=== PATIENT | female | born 1975 | race Caucasian/White ===

== ENCOUNTER 2017-01-25 09:07 | Emergency (ER) | payer OTHER ==
[2017-01-25 09:19] VITALS: BP 105/69
--- NOTE | 2017-01-25 09:39 | UC ---
Respiratory Complaint HPI - History of Current Complaint Chief Complaint: UCGeneralIllness Stated Complaint: SORE THROAT Time Seen by Provider: 01/25/17 09:32 Hx Obtained From: Patient Hx Last Menstrual Period: 01/13/17 ?: No Onset/Duration: Sudden Onset, Lasting Weeks - 1, Still Present, Worse Since - the laryngitis Timing: Constant Severity Initially: Mild Severity Currently: Moderate Character: Cough: Productive Aggravating Factors: Deep Breaths, Recumbent Position Alleviating Factors: Nothing Associated Signs And Symptoms: Positive: Wheezing, URI, Nasal Congestion, Hoarseness, Sinus Discomfort - Risk Factors Pulmonary Embolism Risk Factors: Negative Cardiac Risk Factors: Negative Pseudomonas Risk Factors: Negative Tuberculosis Risk Factors: Negative - Allergies/Home Medications Allergies/Adverse Reactions: Allergies Allergy/AdvReac Type Severity Reaction Status Date / Time Aloe Allergy Intermediate Rash Verified 01/25/17 09:19 Clindamycin Allergy Intermediate Rash Verified 01/25/17 09:19 PMH/Surg Hx/FS Hx/Imm Hx Endocrine History Of: Reports: Thyroid Disease - HYPO Denies: Diabetes, Hyperthyroidism, Hypothyroidism, Dyslipidemia Cardiovascular History Of: Denies: Cardiac Disorders, Hypertension, Pacemaker/ICD, Myocardial Infarction , Congestive Heart Failure, Atrial Fibrillation, Deep Vein Thrombosis, Bleeding Disorders Respiratory History Of: Reports: Asthma Denies: COPD, Bronchitis, Pneumonia, Pulmonary Embolism GI/ History Of: Denies: Gastroesophageal Reflux, Ulcer, Gastrointestinal Bleed, Gall Bladder Disease, Kidney Stones, Diverticulitis, Renal Disease, Urosepsis Neurological History Of: Denies: TIA, CVA, Dementia, Seizures, Migraine Psychological History Of: Denies: Anxiety, Depression Cancer History Of: Denies: Lung Cancer, Colorectal Cancer, Breast Cancer, Prostate Cancer, Cervical Cancer Other History Of: Negative For: HIV, Hepatitis B, Hepatitis C - Surgical History Surgical History: Yes Surgery Procedure, Year, and Place: LEFT BREAST BIOPSY 2009,LUMPECTOMY RT BREAST 17 YRS AGO,. BRONCHOSCOPY-AUG 2014- "CLEAR" PER PAT - Family History Known Family History: Negative: Renal Disease, Blood Disorder - Social History Occupation: Employed Full-time Lives: With Family Alcohol Use: Occasionally Substance Use Type: None Smoking Status (MU): Never Smoked Tobacco - Immunization History Most Recent Influenza Vaccination: none Review of Systems Constitutional: Chills ENT: Sore Throat Respiratory: Shortness Of Breath, Cough All Other Systems Reviewed And Are Negative: Yes Physical Exam Triage Information Reviewed: Yes Appearance: No Pain Distress, Well-Nourished, Ill-Appearing Vital Signs: Initial Vital Signs Temp 98.7 F 01/25/17 09:15 Pulse 60 01/25/17 09:15 Resp 16 01/25/17 09:15 BP 105/69 01/25/17 09:15 Pulse Ox 100 01/25/17 09:15 Vital Signs Reviewed: Yes Eyes: Positive: Conjunctiva Clear ENT: Positive: Pharynx normal, TMs normal Neck exam: Normal Respiratory: Positive: Wheezing - Expiratory with coughing Cardiovascular Exam: Normal Musculoskeletal Exam: Normal Neurological Exam: Normal Psychological Exam: Normal Skin Exam: Normal UC Diagnostic Evaluation - Laboratory O2 Sat by Pulse Oximetry: 100 Respiratory Course/Dx - Differential Dx/Diagnosis Differential Diagnosis/HQI/PQRI: Asthma, Lower Resp Infection, Sinusitis Provider Diagnoses: Acute URI. Acute sinusitis. Acute bronchospasm Discharge - Discharge Plan Condition: Stable Disposition: HOME Prescriptions: Amoxicillin (*) [Amoxicillin 875 MG (*)] 875 mg PO BID #20 tab predniSONE TAB* [Deltasone TAB*] 20 mg PO DAILY #18 tab Patient Education Materials: Upper Respiratory Infection (ED), Bronchospasm (ED ), Prednisone (By mouth), Sinusitis (ED), Amoxicillin (By mouth)
== END 2017-01-25 09:50 | disposition home or self-care (01) ==
LOC: UCCORT 09:07
DX: J06.9 Acute upper respiratory infection, unspecified (principal); J01.90 Acute sinusitis, unspecified; J98.01 Acute bronchospasm; Z88.1 Allergy status to other antibiotic agents
CPT/HCPCS: 99212; G0463

== ENCOUNTER 2018-04-04 11:11 | Emergency (ER) | payer OTHER ==
[2018-04-04 11:33] VITALS: BP 123/73
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
--- NOTE | 2018-04-04 13:02 | RAD ---
HISTORY: Pain, trauma COMPARISONS: February 06, 2005 VIEWS: 5, Frontal, lateral, open-mouth odontoid, and bilateral oblique views of the cervical spine. FINDINGS: The cervical spine is visualized from the skull base through T1. ALIGNMENT: There is straightening of the normal cervical lordosis. VERTEBRAL BODIES: There is anterolateral marginal osteophyte formation with sclerotic degenerative changes and posterior osteophytic ridging at C5-C6. This has developed from the previous examination. JOINTS: There is uncovertebral and facet hypertrophy at C5-C6. On the right, there is moderate neuroforaminal narrowing. On the left, there is mild neural foraminal narrowing. INTERVERTEBRAL DISCS: There is loss of intervertebral disc height at C5-C6. SOFT TISSUE: The prevertebral soft tissues are normal. OTHER: The skull base is normal. The lung apices are clear. IMPRESSION: 1. STRAIGHTENING THE CERVICAL LORDOSIS. 2. DEGENERATIVE DISC DISEASE AND OSTEOARTHRITIS AT C5-C6, DEVELOPED FROM 2004. 3. NO ACUTE OSSEOUS INJURY TO THE CERVICAL SPINE.
--- NOTE | 2018-04-04 13:02 | RAD ---
HISTORY: Pain, trauma COMPARISONS: December 03, 2011 VIEWS: 5 , Frontal, lateral, coned-down lateral sacral, and bilateral oblique views of the lumbar spine. FINDINGS: ALIGNMENT: The alignment is normal. VERTEBRAL BODIES: The vertebral body heights are normal. The interpedicular distances are normal. JOINTS: There is facet osteoarthritis at L4-L5 and L5-S1 INTERVERTEBRAL DISCS: There is mild diffuse loss of intervertebral disc height. SOFT TISSUE: Unremarkable. OTHER: The pelvis is unremarkable. The lung bases are clear. IMPRESSION: MILD DEGENERATIVE DISC DISEASE AND OSTEOARTHRITIS. NO ACUTE OSSEOUS INJURY TO THE LUMBAR SPINE
== END 2018-04-04 13:15 | disposition home or self-care (01) ==
LOC: UCCORT 11:11
DX: M54.2 Cervicalgia (principal); M54.5 Low back pain; V43.52XA Car driver injured in collision with other type car in traffic accident, initial encounter; Y93.89 Activity, other specified; Y92.410 Unspecified street and highway as the place of occurrence of the external cause; Z88.1 Allergy status to other antibiotic agents
CPT/HCPCS: 72050; 72110; 99212; G0463

== ENCOUNTER 2018-09-06 07:21 | Emergency (ER) | payer OTHER ==
--- NOTE | 2018-09-06 07:27 | UC ---
Respiratory Complaint HPI - HPI Summary HPI Summary: Patient is a 43-year-old female who presents with cough and cold symptoms for almost 2 weeks. States cough, sinus congestion, and right ear pain. She did not take any temperature at home. Reports associated sinus pain and pressure and postnasal drip. She also has headache and right ear pain. She took DayQuil without much improvement. Denies any fever, chills, cough chest pain or shortness of breath . No diaphoresis. Denies any abdominal pain , nausea or vomiting , diarrhea or constipation. Overall her symptoms are not improving and progressively getting worse - History of Current Complaint Stated Complaint: COUGH,RT EAR/SINUS COMPLAINT Time Seen by Provider: 09/06/18 07:24 Hx Obtained From: Patient Hx Last Menstrual Period: 01/13/17 ?: No - LMP 2 weeks ago - Allergies/Home Medications Allergies/Adverse Reactions: Allergies Allergy/AdvReac Type Severity Reaction Status Date / Time aloe Allergy Rash Verified 09/06/18 07:27 clindamycin Allergy Rash Verified 09/06/18 07:27 PMH/Surg Hx/FS Hx/Imm Hx Previously Healthy: Yes Endocrine History: Thyroid Disease, Hypothyroidism Other Endocrine History: negative Other Cardiovascular History: negative Other Respiratory History: negative Other GI/ History: negative Other Neurological History: negative Other Psychological History: negative Other History Of: Negative For: HIV, Hepatitis B, Hepatitis C - Surgical History Surgical History: Yes Surgery Procedure, Year, and Place: LEFT BREAST BIOPSY 2009,LUMPECTOMY RT BREAST 17 YRS AGO,. BRONCHOSCOPY-AUG 2014- "CLEAR" PER PAT - Family History Known Family History: Negative: Renal Disease, Blood Disorder - Social History Alcohol Use: Occasionally Substance Use Type: None Smoking Status (MU): Never Smoked Tobacco - Immunization History Most Recent Influenza Vaccination: none Review of Systems Constitutional: Fever Skin: Negative Eyes: Negative - Problem ENT: Sore Throat, Ear Ache, Nasal Discharge, Sinus Congestion, Sinus Pain/ Tenderness Respiratory: Negative Cardiovascular: Negative Gastrointestinal: Negative Genitourinary: Negative Motor: Negative Neurovascular: Negative Musculoskeletal: Negative Neurological: Negative Psychological: Negative Is Patient Immunocompromised?: No All Other Systems Reviewed And Are Negative: Yes Physical Exam - Summary Physical Exam Summary: Physical Exam: Const: Appears well. No signs of apparent distress present. Alert and oriented x 3. Musculo: Walks with a normal gait. Head/Face: Atraumatic, normocephalic on inspection. Eyes: EOMI and PERRLA in both eyes. Conjunctivae clear. No discharge noted ENT: Hearing normal, TM normal appearing bilaterally - no redness. Mild pharyngeal erythema with cobblestoning, no exudates noted Tenderness to palpation on the frontal and the maxillary sinus on the right side. Tender anterior right cervical lymphadenopathy. Respiratory: Respirations are unlabored. Lungs clear to auscultation bilaterally, no wheezing , rhonchi or rales noted . CVS: Regular rate and Rhythm, S1S2 normal , no murmurs identified. Extremities: Peripheral circulation is grossly normal. Pulses 2+ Abdomen : Soft non tender , nondistended , Bowel sounds present . No guarding , rebound tenderness or rigidity noted. Skin: No lesions or rash located on the upper extremities or on the lower extremities. Neuro: Cranial nerves II to XII intact, motor and sensory intact. DTR Intact bilaterally. Mood is normal. Affect is normal. Triage Information Reviewed: Yes Vital Signs Reviewed: Yes Respiratory Course/Dx - Course Course Of Treatment: During the visit today, we discussed the findings and further plan. I will prescribe the medication to the pharmacy . Patient expressed understanding . - Differential Dx/Diagnosis Provider Diagnoses: Sinusitis Discharge - Sign-Out/Discharge Documenting (check all that apply): Patient Departure All imaging exams completed and their final reports reviewed: No Studies - Discharge Plan Condition: Stable Disposition: HOME Prescriptions: Amoxicillin/Clavulanate TAB* [Augmentin TAB 875*] 875 mg PO BID 14 Days #28 tab Patient Education Materials: Sinusitis (ED) Referrals: Cherie Grimaldo MD [Primary Care Provider] - 1 Week Additional Instructions: Please start taking the medication as prescribed to the pharmacy . Please keep yourself hydrated Ibuprofen as needed for fever Okay to take NyQuil as needed before going to bed. Follow up with your primary care doctor in 1 week Return to Urgent care / ER if symptoms get worse. - Billing Disposition and Condition Condition: STABLE Disposition: Home
[2018-09-06 07:29] VITALS: BP 115/78
== END 2018-09-06 07:44 | disposition home or self-care (01) ==
LOC: UCCORT 07:21
DX: J32.9 Chronic sinusitis, unspecified (principal); Z88.1 Allergy status to other antibiotic agents; Z91.048 Other nonmedicinal substance allergy status
CPT/HCPCS: 99212; G0463

== ENCOUNTER 2019-03-29 14:25 | Emergency (ER) | payer OTHER ==
[2019-03-29 15:05] VITALS: BP 119/76
--- NOTE | 2019-03-29 15:19 | UC ---
Throat Pain/Nasal Onel HPI - HPI Summary HPI Summary: 43 yo female with sore throat x 1 day general malaise and mild cough ? fever no CP or SOB - History of Current Complaint Chief Complaint: [facility]GeneralIllness Stated Complaint: SORE THROAT Time Seen by Provider: 03/29/19 15:05 Hx Obtained From: Patient Hx Last Menstrual Period: ~03/15/19 Onset/Duration: Gradual Onset, Lasting Days Severity: Moderate Pain Intensity: 7 Pain Scale Used: 0-10 Numeric Cough: Nonproductive Associated Signs & Symptoms: Positive: Negative - Epiglottits Risk Factors Epiglottis Risk Factors: Negative - Allergies/Home Medications Allergies/Adverse Reactions: Allergies Allergy/AdvReac Type Severity Reaction Status Date / Time aloe Allergy Rash Verified 03/29/19 15:03 clindamycin Allergy Rash Verified 03/29/19 15:03 PMH/Surg Hx/FS Hx/Imm Hx Previously Healthy: Yes Other History Of: Negative For: HIV, Hepatitis B, Hepatitis C - Surgical History Surgical History: Yes Surgery Procedure, Year, and Place: LEFT BREAST BIOPSY 2009,LUMPECTOMY RT BREAST 17 YRS AGO,. BRONCHOSCOPY-AUG 2014- "CLEAR" PER PAT - Family History Known Family History: Positive: Hypertension, Diabetes Negative: Renal Disease, Blood Disorder - Social History Alcohol Use: Occasionally Substance Use Type: None Smoking Status (MU): Never Smoked Tobacco - Immunization History Most Recent Influenza Vaccination: none Review of Systems All Other Systems Reviewed And Are Negative: Yes Constitutional: Positive: Fever - ? Skin: Positive: Negative Eyes: Positive: Negative ENT: Positive: Sore Throat Respiratory: Positive: Cough - very mild Cardiovascular: Positive: Negative Gastrointestinal: Positive: Negative Genitourinary: Positive: Negative Motor: Positive: Negative Neurovascular: Positive: Negative Musculoskeletal: Positive: Negative Neurological: Positive: Negative Psychological: Positive: Negative Physical Exam Triage Information Reviewed: Yes Appearance: Well-Appearing, No Pain Distress, Well-Nourished Vital Signs: Initial Vital Signs Temp 99.1 F 03/29/19 15:02 Pulse 66 03/29/19 15:02 Resp 18 03/29/19 15:02 BP 119/76 03/29/19 15:02 Pulse Ox 100 03/29/19 15:02 Vital Signs Reviewed: Yes Eyes: Positive: Conjunctiva Clear ENT: Positive: Pharyngeal erythema, TMs normal, Uvula midline. Negative: Nasal congestion, Nasal drainage, Tonsillar swelling, Tonsillar exudate, Trismus, Muffled voice, Hoarse voice, Dental tenderness, Sinus tenderness Dental Exam: Normal Neck: Positive: Supple, Nontender, No Lymphadenopathy Respiratory: Positive: Lungs clear, Normal breath sounds, No respiratory distress, No accessory muscle use Cardiovascular: Positive: RRR, No Murmur Musculoskeletal: Positive: ROM Intact, No Edema Neurological: Positive: Alert Psychological Exam: Normal Skin Exam: Normal Diagnostics - Laboratory Lab Results: strep (-) Throat Pain/Nasal Course/Dx - Differential Dx/Diagnosis Provider Diagnosis: Pharyngitis Discharge - Sign-Out/Discharge Documenting (check all that apply): Patient Departure All imaging exams completed and their final reports reviewed: No Studies - Discharge Plan Condition: Stable Disposition: HOME Patient Education Materials: Pharyngitis (ED) Referrals: Cherie Grimaldo MD [Primary Care Provider] - 3 Days (if not better ) Additional Instructions: rapid strep (-) culture pending - Billing Disposition and Condition Condition: STABLE Disposition: Home
== END 2019-03-29 15:23 | disposition home or self-care (01) ==
LOC: UCCORT 14:25
DX: J02.9 Acute pharyngitis, unspecified (principal); Z88.1 Allergy status to other antibiotic agents; Z91.09 Other allergy status, other than to drugs and biological substances
CPT/HCPCS: 87070; 87651; 99211; G0463